=== PATIENT | male | born 1965 | race Caucasian/White ===

== ENCOUNTER 2018-09-01 08:33 | Emergency (ER) | payer BC ==
[2018-09-01 08:47] VITALS: BP 148/87
--- NOTE | 2018-09-01 10:11 | UC ---
Skin Complaint HPI - HPI Summary HPI Summary: FELL ASLEEP ON A [place] 5 DAYS AGO AND SUSTAINED A SUNBURN TO HIS CHEST AND ABDOMEN. STATES IT IS INTENSELY PRURITIC AND IS KEEPING HIM UP AT NIGHT. NO IMPROVEMENT WITH OTC HYDROCORTISONE OR ALOE. NO FEVER. NO NAUSEA. NO BLISTERING/DRAINAGE. - History of Current Complaint Chief Complaint: UCSkin Time Seen by Provider: 09/01/18 09:42 Stated Complaint: SKIN COMPLAINT Hx Obtained From: Patient Onset/Duration: Sudden Onset, Lasting Days, Still Present Timing: Constant Onset Severity: Moderate Current Severity: Moderate Pain Intensity: 0 Pain Scale Used: 0-10 Numeric Character: Pain, Redness Aggravating Factor(s): Touch Alleviating Factor(s): Nothing Associated Signs & Symptoms: Positive: Rash. Negative: Nausea, Difficulty Breathing, Fever, Chills, Tenderness - Allergy/Home Medications Allergies/Adverse Reactions: Allergies Allergy/AdvReac Type Severity Reaction Status Date / Time No Known Allergies Allergy Verified 09/01/18 08:47 Home Medications: Home Medications Atorvastatin* [Lipitor 20 MG*] 20 mg PO QPM 09/01/18 [History Confirmed 09/01/18 ] Losartan/HCTZ 100/25 (NF) [Hyzaar 100/25 (NF)] 1 tab PO DAILY 09/01/18 [History Confirmed 09/01/18] [place]-3 Acid Ethyl Esters [Lovaza] 1 cap PO DAILY 09/01/18 [History Confirmed ] Pantoprazole TAB * [Protonix TAB*] 40 mg PO DAILY 09/01/18 [History Confirmed ] Verapamil TAB* [[place] TAB*] 240 mg PO DAILY 09/01/18 [History Confirmed 09/01/18 ] PMH/Surg Hx/FS Hx/Imm Hx Endocrine History: Dyslipidemia Cardiovascular History: Hypertension GI/ History: Gastroesophageal Reflux - Surgical History Surgical History: Yes Surgery Procedure, Year, and Place: appy - Family History Known Family History: Positive: Non-Contributory - Social History Alcohol Use: Occasionally Substance Use Type: None Smoking Status (MU): Former Smoker When Did the Patient Quit Smoking/Using Tobacco: 20 yrs ago Review of Systems All Other Systems Reviewed And Are Negative: Yes Constitutional: Positive: Negative Skin: Positive: Other - SUNBURN Respiratory: Positive: Negative Cardiovascular: Positive: Negative Gastrointestinal: Positive: Negative Physical Exam Triage Information Reviewed: Yes Appearance: Well-Appearing, No Pain Distress, Well-Nourished Vital Signs: Initial Vital Signs Temp 98.2 F 09/01/18 08:44 Pulse 76 09/01/18 08:44 Resp 16 09/01/18 08:44 BP 148/87 09/01/18 08:44 Pulse Ox 100 09/01/18 08:44 Vital Signs Reviewed: Yes Eyes: Positive: Conjunctiva Clear ENT: Positive: Hearing grossly normal Neck: Positive: Supple Respiratory: Positive: No respiratory distress, No accessory muscle use Cardiovascular: Positive: Pulses Normal Abdomen Description: Positive: Soft Musculoskeletal: Positive: No Edema Neurological: Positive: Alert Psychological: Positive: Age Appropriate Behavior Skin: Positive: Other - ERYTHEMA, FLAKING SKIN UPPER CHEST AND ABDOMEN. NO BLISTERS OR DRAINAGE. NOT TENDER Course/Dx - Course Course Of Treatment: PATIENT WITH HEALING SUNBURN ON CHEST AND ABDOMEN. STATES THE ITCHING IS SO INTENSE IT IS KEEPING HIM AWAKE AT NIGHT. OTC HYDROCORTISONE CREAM AND ALOE ARE NOT WORKING. WE'LL GIVE HER TRIAMCINOLONE FOR HIM TO USE TWICE DAILY. ADVISED DAILY HYPOALLERGENIC MOISTURIZER. PREDNISONE TO CALM THE INFLAMMATION AND ITCH. ADVISED SHE MAY TAKE OTC ANTIHISTAMINES TO HELP COMBAT ANY ALLERGIC RESPONSE THAT COULD BE CONTRIBUTING TO HIS SYMPTOMS. STAY COOL CLEAN AND DRY. DO NOT SCRATCH. COLD PACKS NEEDED. - Diagnoses Provider Diagnosis: Sunburn of first degree Discharge - Sign-Out/Discharge Documenting (check all that apply): Patient Departure All imaging exams completed and their final reports reviewed: No Studies - Discharge Plan Condition: Stable Disposition: HOME Prescriptions: predniSONE TAB* [Deltasone 20 MG TAB*] 40 mg PO DAILY #10 tab Triamcinolone 0.1% CREAM(NF) [Kenalog Cream 0.1%(NF)] 1 applic TOPICAL BID PRN # [id number] PRN Reason: Itching Patient Education Materials: Sunburn (ED) Referrals: [facility] [Outside] - If Needed Additional Instructions: USE DAILY HYPOALLERGENIC MOISTURIZING LOTION TAKE PREDNISONE DAILY PRESCRIBED AVOID HEAT AND HOT WATER TAKE OTC ANTIHISTAMINE DAILY (CLARITIN (LORATADINE), ZYRTEC (CETIRIZINE) OR PUSHPA (FEXOFENADINE) IN THE MORNING, 25-50MG BENADRYL AT NIGHT) DO NOT SCRATCH KEEP COOL, CLEAN AND DRY USE TOPICAL STEROID SPARINGLY 2 TIMES DAILY ON ITCHY AREA. KEEP AWAY FROM MUCOUS MEMBRANES. TAKE SUN PRECAUTIONS CALL THE NUMBER BELOW FOR ASSISTANCE IN ESTABLISHING WITH A PCP An additional resource available to assist in finding the appropriate physician for your health care needs is [facility] ([facility]). You may contact them by calling [phone]. - Billing Disposition and Condition Condition: STABLE Disposition: Home
== END 2018-09-01 10:10 | disposition home or self-care (01) ==
LOC: UCCORT 08:33
DX: L55.0 Sunburn of first degree (principal); Z87.891 Personal history of nicotine dependence; I10 Essential (primary) hypertension; E78.5 Hyperlipidemia, unspecified; K21.9 Gastro-esophageal reflux disease without esophagitis
CPT/HCPCS: 99202; G0463